=== PATIENT | male | born 1970 ===

== ENCOUNTER 2017-09-13 13:23 | Emergency (ER) | payer OTHER ==
[2017-09-13 13:40] VITALS: BMI 33.0
[2017-09-13 13:44] VITALS: RESP 18; TEMP 96.1
[2017-09-13] MEDS ORDERED: Oxycodone/Acetaminophen 5/325 mg Tab PO STA (13:51)
--- NOTE | 2017-09-13 13:54 | ED PDOC ---
Arrival/HPI - General Chief Complaint: Back Pain Time Seen by Provider: 09/13/17 13:45 Historian: Patient - History of Present Illness Narrative History of Present Illness (Text): 09/13/17 13:51 46 y/o male, no pmh, nkda, c/o mid and lower back pain s/p slipped and fall while walking down the stair x 2 hours. Pt. stated that he was walking down the stair, slipped on the step, fall on the mid back and lower back region, able to get up, no numbness or tingling, no neck pain or head injury, no LOC, no numbness or tingling, no palpitation, no urinary or bowel incontinence or retention, no other medical or psychological complaints. Past Medical History - Provider Review Nursing Documentation Reviewed: Yes - Infectious Disease Hx of Infectious Diseases: None - Pulmonary Hx Respiratory Disorders: Yes - Psychiatric Hx Substance Use: No - Anesthesia Hx Anesthesia: No Hx Anesthesia Reactions: No Hx Malignant Hyperthermia: No Family/Social History - Physician Review Nursing Documentation Reviewed: Yes Family/Social History: Unknown Family HX Smoking Status: Never Smoked Hx Alcohol Use: No Hx Substance Use: No Allergies/Home Meds Allergies/Adverse Reactions: Allergies No Known Allergies Allergy (Verified 09/13/17 13:45) Review of Systems - Review of Systems Constitutional: absent: Fatigue, Fevers Eyes: absent: Vision Changes ENT: absent: Hearing Changes Respiratory: absent: SOB, Cough Cardiovascular: absent: Chest Pain Gastrointestinal: absent: Abdominal Pain, Nausea, Vomiting Musculoskeletal: Arthralgias, Back Pain, Myalgias. absent: Neck Pain Skin: absent: Rash, Pruritis Neurological: absent: Headache, Dizziness Psychiatric: absent: Anxiety, Depression, Suicidal Ideation Physical Exam Vital Signs Reviewed: Yes Vital Signs Temp Pulse Resp BP Pulse Ox 09/13/17 16:15 94 H 18 127/84 100 09/13/17 16:08 124/84 09/13/17 16:07 97 H 18 96 09/13/17 13:40 96.1 F L 104 H 18 152/90 H 96 Temperature: Afebrile Blood Pressure: Hypertensive Pulse: Tachycardic Respiratory Rate: Normal Appearance: Positive for: Well-Appearing, Non-Toxic Pain Distress: Moderate Mental Status: Positive for: Alert and Oriented X 3 - Systems Exam Head: Present: Atraumatic, Normocephalic. No: Tenderness, Contusion, Swelling, Ecchymosis, Abrasion, Laceration, Other Pupils: Present: PERRL Extroacular Muscles: Present: EOMI Conjunctiva: Present: Normal Ears: Present: NORMAL TM, Normal Canal. No: Erythema Mouth: Present: Moist Mucous Membranes Nose (External): Present: Atraumatic. No: Abrasion, Contusion, Laceration, Lesions Nose (Internal): Present: Normal Inspection, No Active Bleeding. No: Rhinorrhea , Septal Hematoma, Epistaxis Neck: Present: Normal Range of Motion, Trachea Midline. No: Meningeal Signs, MIDLINE TENDERNESS, Paraspinal Tenderness, Lymphadenopathy Respiratory/Chest: Present: Clear to Auscultation, Good Air Exchange. No: Respiratory Distress, Accessory Muscle Use Cardiovascular: Present: Regular Rate and Rhythm, Normal S1, S2. No: Murmurs Abdomen: Present: Normal Bowel Sounds. No: Tenderness, Distention, Peritoneal Signs, Rebound, Guarding Back: Present: Normal Inspection, Other (Thoracic to the LS spine: +ttp on the rt. paraspinal and rt. rib posterior midscapular lower rib region with no ecchymosis/laceration/abrasion, FROM without limitation, sensation intact, motor 5/5, SLR test negative. ) Upper Extremity: Present: Normal Inspection. No: Cyanosis, Edema Lower Extremity: Present: Normal Inspection, Other (+ttp on the rt. pelvic region with no hematoma or ecchymosis, ). No: Edema Neurological: Present: GCS=15, Speech Normal, Motor Func Grossly Intact, Gait Normal, Memory Normal Skin: Present: Warm, Dry, Normal Color. No: Rashes Psychiatric: Present: Alert, Oriented x 3, Normal Insight, Normal Concentration Medical Decision Making ED Course and Treatment: 09/13/17 14:02 -Rt. rib/thoracic and LS spine/rt. hip/pelvic xrays -motrin and percocet -observe and reassess 09/13/17 16:01 -Rt. hip and pelvis xray show no traumatic findings. -Rt. rib and chest xray show no acute traumatic findings. -LS spine xray show: No radiographic evidence of acute fracture or subluxation. Moderate endplate and disc degenerative changes associated with marginal osteophyte lipping. -Dorsal xray: Unremarkable radiographs of the thoracic spine. -Pain improved, feeling much better, walking with normal gait and posture, no focal neurological deficits. Pt. refused muscle relaxant. -Discharge home with sandie albright, follow up with your own pmd and orthopedic/physical therapist, return to the ER for any new or worsening signs or symptoms. - RAD Interpretation Radiology Orders: 09/13/17 13:50 DORSAL (THORACIC) SPINE [RAD] Stat LS SPINE WITH OBL > 18 YRS OLD [RAD] Stat RIBS RIGHT & PA CHEST [RAD] Stat 09/13/17 13:59 Hip Right [HIP MIN 2V W/ PELVIS RT] [RAD] Stat Rt. rib xray: PROCEDURE: Radiographs of the Chest and Right Ribs. HISTORY: rt. posterior rib cage pain s/p fall COMPARISON: None available. TECHNIQUE: Frontal radiograph of the chest and multiple oblique radiographs of the right ribs were obtained. FINDINGS: RIGHT RIBS: No fracture or focal lesion visualized. LUNGS: Clear. PLEURA: No pneumothorax or pleural fluid. CARDIOVASCULAR: Normal sized heart. No pulmonary vascular congestion. OTHER FINDINGS: None. IMPRESSION: Unremarkable radiographs of the chest and right ribs. No right rib fracture. -- Rt. hip and pelvis xray: PROCEDURE: Right Hip and pelvis Radiographs. HISTORY: fall COMPARISON: None. FINDINGS: BONES: Normal. No fracture. JOINTS: Normal. SOFT TISSUES: Normal. OTHER FINDINGS: None. IMPRESSION: Negative study Dorsal xray: HISTORY: Posttraumatic mid back pain COMPARISON: No prior. FINDINGS: BONES: Alignment maintained. No fracture. DISC SPACES: Normal. SOFT TISSUES: Normal. OTHER FINDINGS: None. IMPRESSION: Unremarkable radiographs of the thoracic spine. LS spine xray: PROCEDURE: Radiographs of the Lumbar Spine. HISTORY: fall COMPARISON: No prior. FINDINGS: BONES: Normal alignment. No listhesis. No fracture. DISC SPACES: Moderate degenerative disc changes more prominent at L4-L5 and L5-S1. OTHER FINDINGS: Marginal osteophyte lipping are noted IMPRESSION: No radiographic evidence of acute fracture or subluxation. Moderate endplate and disc degenerative changes associated with marginal osteophyte lipping. Resource Specialist Teacher: Radiologist - Medication Orders Current Medication Orders: Discontinued Medications Ibuprofen (Motrin Tab) 800 mg PO STAT STA Stop: 09/13/17 13:52 Last Admin: 09/13/17 14:14 Dose: 800 mg Oxycodone/Acetaminophen (Percocet 5/325 Mg Tab) 1 tab PO STAT STA Stop: 09/13/17 13:52 Last Admin: 09/13/17 14:14 Dose: Not Given Non-Admin Reason: Patient Refused MAR Pain Assessment Document 09/13/17 14:14 MS (Rec: 09/13/17 14:14 MS [id number]) Pain Reassessment Is this a pain reassessment? No - PA / DOCTOR OF NAPRAPATHY / Resident Statement /DO has reviewed & agrees with the documentation as recorded. Disposition/Present on Arrival - Present on Arrival Any Indicators Present on Arrival: No History of DVT/PE: No History of Uncontrolled Diabetes: No Urinary Catheter: No History of Decub. Ulcer: No History Surgical Site Infection Following: None - Disposition Have Diagnosis and Disposition been Completed?: Yes Diagnosis: Accidental fall, Back pain, Arthralgia Disposition: HOME/ ROUTINE Disposition Time: 16:03 Patient Plan: Discharge Condition: IMPROVED Additional Instructions: -Discharge home with jose ramon lidoderm patch, follow up with your own pmd and orthopedic/physical therapist, return to the ER for any new or worsening signs or symptoms. Prescriptions: Lidocaine 5% [Lidoderm] 1 patch TOP DAILY PRN #14 patch PRN Reason: Other Meloxicam [Mobic] 15 mg PO DAILY PRN #14 tablet PRN Reason: Other Referrals: PCP,NO [Primary Care Provider] - Follow up with primary [facility] [place] - Follow up with primary Armani Mchugh MD [Staff Provider] - Follow up with primary Forms: [employer] (Turkmen), WORK NOTE
--- NOTE | 2017-09-13 15:32 | RAD ---
PROCEDURE: Radiographs of the Chest and Right Ribs. HISTORY: rt. posterior rib cage pain s/p fall COMPARISON: None available. TECHNIQUE: Frontal radiograph of the chest and multiple oblique radiographs of the right ribs were obtained. FINDINGS: RIGHT RIBS: No fracture or focal lesion visualized. LUNGS: Clear. PLEURA: No pneumothorax or pleural fluid. CARDIOVASCULAR: Normal sized heart. No pulmonary vascular congestion. OTHER FINDINGS: None. IMPRESSION: Unremarkable radiographs of the chest and right ribs. No right rib fracture.
--- NOTE | 2017-09-13 15:38 | RAD ---
PROCEDURE: Right Hip and pelvis Radiographs. HISTORY: fall COMPARISON: None. FINDINGS: BONES: Normal. No fracture. JOINTS: Normal. SOFT TISSUES: Normal. OTHER FINDINGS: None. IMPRESSION: Negative study
--- NOTE | 2017-09-13 15:39 | RAD ---
PROCEDURE: Radiographs of the Lumbar Spine. HISTORY: fall COMPARISON: No prior. FINDINGS: BONES: Normal alignment. No listhesis. No fracture. DISC SPACES: Moderate degenerative disc changes more prominent at L4-L5 and L5-S1. OTHER FINDINGS: Marginal osteophyte lipping are noted IMPRESSION: No radiographic evidence of acute fracture or subluxation. Moderate endplate and disc degenerative changes associated with marginal osteophyte lipping.
[2017-09-13 16:17] VITALS: BP 127/84; PULSE 94; O2SAT 100
--- NOTE | 2017-09-13 17:34 | RAD ---
HISTORY: Posttraumatic mid back pain COMPARISON: No prior. FINDINGS: BONES: Alignment maintained. No fracture. DISC SPACES: Normal. SOFT TISSUES: Normal. OTHER FINDINGS: None. IMPRESSION: Unremarkable radiographs of the thoracic spine. Concordant results with the preliminary interpretation rendered by the emergency department physician procedure.
== END 2017-09-13 16:29 | disposition home or self-care (01) ==
LOC: ED 13:23
DX: M54.6 Pain in thoracic spine (principal); W10.8XXA Fall (on) (from) other stairs and steps, initial encounter; Y92.89 Other specified places as the place of occurrence of the external cause